=== PATIENT | female | born 1970 ===

== ENCOUNTER 2020-02-03 23:14 | Emergency (ER) | payer OTHER ==
[2020-02-03] MEDS ORDERED: Sodium Chloride 0.9% 10 ML Syringe FLUSH PRN (23:43)
--- NOTE | 2020-02-03 23:52 | EDM.PDOC ---
ED HPI GENERAL MEDICAL PROBLEM - General Chief Complaint: Chest Pain Stated Complaint: CHEST PRESSURE COUGH Time Seen by Provider: 02/03/20 23:25 Source of Information: Reports: Patient, Family () History Limitations: Reports: No Limitations - History of Present Illness INITIAL COMMENTS - FREE TEXT/NARRATIVE: Mrs. Arias is a very pleasant 49-year-old woman with a past medical history significant for chronic daily alcoholism and a spontaneous left-sided pneumothorax in 1999 that required numerous chest tubes and an eventual thoracotomy with pleurodesis, who now presents to the ED stating that she developed left sided chest pressure around 22:30 this evening, just after she had gone to bed, and while she was lying on her left side. The pressure radiates around to her far left side/infra axillary area. She states that she feels better if she is sitting up, leaning forward. No associated dyspnea, cough, or fever. The patient also reports that she has had a retrosternal "fist in my chest" coming and going for the past 2 weeks. When present, it lasts about 5 to 10 minutes, and only occurs when she is wearing a mask. She states that she typically gets 2-3 episodes per day. The patient also reports occasional rapid palpitations, including tonight. The patient also reports nausea, vomiting, and watery diarrhea today, although acknowledges that she drank heavily last night, and was hung over today. Here in the ED, the patient's initial BP is found to be elevated at 163/108, and she is tachycardic at 126 bpm. She is afebrile, saturating 99% on room air. Other than the chest pressures, and today's gastrointestinal symptoms, the patient denies recent fever, chills, sore throat, ear pain, nasal or sinus congestion, cough, dyspnea, chest pain, constipation, abdominal pain, urinary symptoms, recent weight gain or weight loss, recent bloody bowel movements or black bowel movements, recent joint aches, headaches, or rashes. The patient does not have a PCP. Left Chest Pain Score (Numeric/FACES): 8 - Related Data Allergies Allergy/AdvReac Type Severity Reaction Status Date / Time No Known Allergies Allergy Verified 02/03/20 23:27 Home Meds: Home Meds Loratadine [Claritin] 10 mg PO DAILY 02/03/20 [History] Past Medical History HEENT History: Reports: Allergic Rhinitis Respiratory History: Reports: Pneumothorax (spontaneous, left, 1999) Psychiatric History: Reports: Addiction (alcohol), Anxiety (untreated) - Past Surgical History HEENT Surgical History: Reports: Oral Surgery (edentulous) Respiratory Surgical History: Reports: Pleurodesis (left, 1999), Thoracotomy ( left, 1999) Female Surgical History: Reports: D&C (x 1) Social & Family History - Tobacco Use Smoking Status *Q: Former Smoker Years of Tobacco use: 11 Packs/Tins Daily: 2.5 Month/Year Tobacco Last Used: Quit 1999 - Alcohol Use Alcohol Use History: Yes Alcohol Use Frequency: Daily (heavily) - Recreational Drug Use Recreational Drug Use: Yes Drug Use in Last 12 Months: No Recreational Drug Type: Reports: Marijuana/Hashish (last smoked when a teenager) - Living Situation & Occupation Living situation: Reports: , with Spouse 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 ED EXAM, GENERAL - Physical Exam Exam: See Below Exam Limited By: No Limitations General Appearance: Alert, WD/WN, No Apparent Distress, Anxious Eye Exam: Bilateral Eye: EOMI, Normal Inspection Ears: Normal External Exam, Hearing Grossly Normal Nose: Normal Inspection Throat/Mouth: Normal Inspection, Normal Lips, Normal Voice, No Airway Compromise Head: Atraumatic, Normocephalic Neck: Normal Inspection, Full Range of Motion Respiratory/Chest: No Respiratory Distress, Lungs Clear, Normal Breath Sounds, No Accessory Muscle Use, Chest Non-Tender. No: Decreased Breath Sounds, Crackles, Rhonchi, Wheezing, Stridor, Prolonged Expiration Cardiovascular: Normal Peripheral Pulses, No Edema, No Gallop, No JVD, No Murmur , No Rub, Tachycardia (regular) Peripheral Pulses: 3+: Radial (L), Radial (R) GI/Abdominal: Normal Bowel Sounds, Soft, Non-Tender, No Organomegaly, No Distention, No Abnormal Bruit, No Mass (Female) Exam: Deferred Rectal (Female) Exam: Deferred Back Exam: Normal Inspection, Full Range of Motion, NT Extremities: Normal Inspection, Normal Range of Motion, No Pedal Edema, Normal Capillary Refill Neurological: Alert, Oriented, Normal Cognition, No Motor/Sensory Deficits Psychiatric: Normal Affect Skin Exam: Warm, Dry, Intact, Normal Color, No Rash EKG INTERPRETATION EKG Date: 02/04/20 Time: 23:27 Rhythm: Other (Sinus tachycardia) Rate (Beats/Min): 122 [place]: LAD-Left [place] Deviation P-Wave: Present QRS: Other (Late transition) ST-T: Normal QT: Normal Comparison: NA - No Prior EKG Course - Vital Signs Last Recorded V/S: Last Vital Signs Temp 36.4 C 02/03/20 23:29 Pulse 126 H 02/03/20 23:29 Resp 16 02/03/20 23:29 BP 163/108 H 02/03/20 23:29 Pulse Ox 99 02/03/20 23:29 - Orders/Labs/Meds Orders: Active Orders 24 hr Category Date Time Status EKG Documentation Completion [RC] STAT Care 02/03/20 23:32 Active Peripheral IV Care [RC] . DIRECTED Care 02/03/20 23:43 Active Chest 2V [CR] Stat Exams 02/03/20 23:43 Taken Potassium Chloride [Klor-Con M20] Med 02/04/20 02:50 Once 40 meq PO ONETIME ONE Sodium Chloride 0.9% [Saline Flush] Med 02/03/20 23:43 Active 10 ml FLUSH ASDIRECTED PRN Peripheral IV Insertion Adult [OM.PC] Routine Oth 02/03/20 23:43 Ordered Medication Orders Sodium Chloride (Saline Flush) 10 ml FLUSH ASDIRECTED PRN PRN Reason: Keep Vein Open Last Admin: 02/03/20 23:52 Dose: 10 ml Labs: Laboratory Tests 02/03/20 02/03/20 02/03/20 Range/Units 23:50 23:50 23:50 WBC 9.80 (3.98-10.04) K/mm3 RBC 4.53 (3.98-5.22) M/mm3 Hgb 13.5 (11.2-15.7) gm/dl Hct 39.9 (34.1-44.9) % MCV 88.1 (79.4-94.8) fl MCH 29.8 (25.6-32.2) pg MCHC 33.8 (32.2-35.5) g/dl RDW Std Deviation 43.4 (36.4-46.3) fL Plt Count 309 (182-369) K/mm3 MPV 8.9 L (9.4-12.3) fl Neutrophils % (Manual) 61 H (40-60) % Band Neutrophils % 6 (0-10) % Lymphocytes % (Manual) 31 (20-40) % Atypical Lymphs % 0 % Monocytes % (Manual) 1 L (2-10) % Eosinophils % (Manual) 1 (0.7-5.8) % Basophils % (Manual) 0 L (0.1-1.2) Platelet Estimate Adequate Plt Morphology Comment Normal RBC Morph Comment Normal D-Dimer, Quantitative 0.24 (0.19-0.50) mg/L Sodium 139 (136-145) mEq/L Potassium 2.7 L (3.5-5.1) mEq/L Chloride 103 (98-107) mEq/L Carbon Dioxide 23 (21-32) mEq/L Anion Gap 15.7 H (5-15) BUN 5 L (7-18) mg/dL Creatinine 0.9 (0.55-1.02) mg/dL Est Cr Clr Drug Dosing TNP Estimated GFR (MDRD) > 60 (>60) mL/min BUN/Creatinine Ratio 5.6 L (14-18) Glucose 125 H (74-106) mg/dL Calcium 9.2 (8.5-10.1) mg/dL Magnesium 1.6 L (1.8-2.4) mg/dl Total Bilirubin 0.6 (0.2-1.0) mg/dL AST 19 (15-37) U/L ALT 27 (14-59) U/L Alkaline Phosphatase 56 (46-116) U/L Troponin I < 0.017 (0.00-0.056) ng/mL Total Protein 7.5 (6.4-8.2) g/dl Albumin 3.7 (3.4-5.0) g/dl Globulin 3.8 gm/dL Albumin/Globulin Ratio 1.0 (1-2) Meds: Medications Generic Name Dose Route Start Last Admin Trade Name Freq PRN Reason Stop Dose Admin Sodium Chloride 10 ml 02/03/20 23:43 02/03/20 23:52 Saline Flush FLUSH 10 ml ASDIRECTED PRN Administration Keep Vein Open Discontinued Medications Generic Name Dose Route Start Last Admin Trade Name Freq PRN Reason Stop Dose Admin Magnesium Sulfate 2 gm/ Premix 50 mls @ 25 mls/hr 02/04/20 00:39 02/04/20 01: 08 IV 02/04/20 02:38 25 mls/hr ONETIME ONE Administration - Re-Assessments/Exams Free Text/Narrative Re-Assessment/Exam: 02/03/20 23:45 As above, the patient has had retrosternal chest discomfort that is been coming and going for the past 2 weeks, and she now presents with left-sided chest pressure that developed tonight after she went to bed. No associated dyspnea, and the patient's oxygen saturation is 99% on room air. No decreased breath sounds on the left side, and my suspicion for a repeat pneumothorax is low. She is vague about whether or not this is similar to when she had a spontaneous pneumothorax in 1999. She also reports occasional palpitations, and she is noted to be tachycardic here in the ED. I am concerned about a PE. I have ordered a work-up that includes blood work and a chest x-ray. An ECG was obtained at triage. 02/04/20 00:38 Two-view chest radiograph appears to be grossly normal. The cardiac silhouette is within normal limits. No pulmonary vascular congestion. No pleural effusions. No focal infiltrate. No pneumothorax. Formal read per the Radiologist pending. The patient's CBC is unremarkable. Her CMP is remarkable for a potassium depressed at 2.7. Her anion gap is slightly elevated at 15.7, but her bicarbonate is normal at 23. Her blood glucose is mildly elevated at 125, with the remainder of her CMP being unremarkable. Her magnesium level is depressed at 1.6. Her troponin is undetectably low. Her D-dimer is within normal limits at 0.24. Based on the above, I have ordered a 2 g Mg-rider, and once that has finished infusing, she will be given oral KCl. 02/04/20 02:51 The patient's Mg-rider has finished infusing. She will be given 40 mEq of oral potassium, after which she can be discharged home. I will refer her to the clinic for follow-up. Departure - Departure Time of Disposition: 02:51 Disposition: Home, Self-Care 01 Condition: Good Clinical Impression: Left axis deviation, Chest pain of uncertain etiology, Hypokalemia, Hypomagnesemia - Discharge Information *PRESCRIPTION DRUG MONITORING PROGRAM REVIEWED*: Not Applicable *COPY OF PRESCRIPTION DRUG MONITORING REPORT IN PATIENT HORACIO: Not Applicable Referrals: Frida Bullard NP [Nurse Practitioner] - Forms: ED Department Discharge Additional Instructions: You were seen in the emergency room for 2 weeks of central trest discomfort and left-sided chest pressure felt tonight. Work-up in the ER included blood work, a chest x-ray, and an ECG. Your work-up found your potassium level to be low at 2.7, and your magnesium level to be low at 1.6. You were given replacement magnesium by IV, and oral replacement potassium. The remainder of your work-up was unremarkable, and does not explain the cause of your symptoms. You do not have a collapsed lung. You do not have pneumonia. You do not have a blood clot in your lungs. You have not suffered a heart attack. We recommend that you take [id number] ibuprofen, 3 tablets (600 mg) up to every 8 hours, as needed for discomfort. We recommend that you follow-up with Frida Bullard NP, or 1 of the other providers in the clinic, to establish a PCP, and to monitor your potassium and magnesium levels. If any other problems, please do not hesitate to return to the ER. Sepsis Event Note - Evaluation Sepsis Screening Result: No Definite Risk - Focused Exam Vital Signs: Vital Signs Temp Pulse Resp BP Pulse Ox 02/03/20 23:29 36.4 C 126 H 16 163/108 H 99 Date Exam was Performed: 02/04/20 Time Exam was Performed: 02:51 - My Orders Last 24 Hours: My Active Orders 02/03/20 23:32 EKG Documentation Completion [RC] STAT 02/03/20 23:43 Peripheral IV Care [RC] . DIRECTED Chest 2V [CR] Stat Sodium Chloride 0.9% [Saline Flush] 10 ml FLUSH ASDIRECTED PRN Peripheral IV Insertion Adult [OM.PC] Routine 02/04/20 02:50 Potassium Chloride [Klor-Con M20] 40 meq PO ONETIME ONE - Assessment/Plan Last 24 Hours: My Active Orders 02/03/20 23:32 EKG Documentation Completion [RC] STAT 02/03/20 23:43 Peripheral IV Care [RC] . DIRECTED Chest 2V [CR] Stat Sodium Chloride 0.9% [Saline Flush] 10 ml FLUSH ASDIRECTED PRN Peripheral IV Insertion Adult [OM.PC] Routine 02/04/20 02:50 Potassium Chloride [Klor-Con M20] 40 meq PO ONETIME ONE
[2020-02-04] MEDS ORDERED: Magnesium Sulfate/Water 2 GM in Premix Bag 1 BAG IV ONE (00:39)
[2020-02-04] MEDS ORDERED: Potassium Chloride 20 MEQ Tab.ER PO ONE (02:50)
--- NOTE | 2020-02-04 10:19 | CR ---
Chest: 2 views of the chest were obtained. Comparison: No prior chest imaging is available. Heart size and mediastinum are normal. Lungs are clear with no acute parenchymal change. Bony structures appear within normal limits. Impression: 1. Nothing acute is seen on 2 view chest x-ray. Diagnostic code #1 This report was dictated in MDT
== END 2020-02-04 03:03 | disposition home or self-care (01) ==
LOC: JD.ED 23:14
DX: R07.89 Other chest pain (principal); E87.6 Hypokalemia; E83.42 Hypomagnesemia; R00.0 Tachycardia, unspecified; Z87.891 Personal history of nicotine dependence; Z79.899 Other long term (current) drug therapy
CPT/HCPCS: 36415; 71046; 80053; 83735; 84484; 85007; 85027; 85379; 93005; 96365; 96366; 99285; A9270; J3475; 93010; 99283